=== PATIENT | male | born 1980 | race Caucasian/White ===

== ENCOUNTER 2016-12-16 16:04 | Day surgery (SDC) | payer MEDICAID ==
[~2016-12-16 16:04] MED LIST: EPINEPHRINE INJ 1 MG/10 ML DISP.SYRIN ONE; FENTANYL CITRATE INJ/PF 100 MCG/2 ML AMPUL ONE; FLUMAZENIL INJ 0.5 MG/5 ML VIAL IV ONE; GLUCAGON,HUMAN RECOMB 1 MG INJ ONE; MIDAZOLAM 2 MG/2 ML INJ ONE; NALOXONE HCL INJ/PF 0.4 MG/1 ML SDV ONE; ONDANSETRON HCL INJ/PF 4 MG/2 ML SDV ONE
--- NOTE | 2016-12-16 18:08 | Operative Report ---
Operative Report DATE OF SURGERY: 12/16/16 Operative Report: Pre-op diagnosis: History of colorectal cancer Post-op diagnosis: Transverse colon polyp Surgery: Colonoscopy through the stoma with polypectomy Medications: Versed 3mg, Fentanyl 100mcg IV push Tissue removed: Colon polyp Procedure: After informed consent obtained from patient, conscious sedation was achieved. The colonoscope was inserted into the stoma of his colostomy and advanced to the cecum. The appendiceal orifice and the terminal ileum were both identified. The mucosa was examined into details as the colonoscope was slowly pulled out of the patient. Patient tolerated the procedure well. Findings Terminal ileum: Cecum: Normal Ascending colon: Normal Transverse colon: 5 mm polyp removed with the cold snare Descending colon: Normal Plan: Await pathology and repeat colonoscopy in 3 years OPERATION: .
--- NOTE | 2016-12-16 18:11 | PDOC DISCHARGE SUMMARY ---
Discharge Summary (SDC) - Discharge Final Diagnosis: Transverse colon polyp Date of Surgery: 12/16/16 Condition: Stable Forms: Sedation D/C Instructions, Discharge POC-Surgical Service Treatment or Instructions: None Referrals: PADMINI VÁSQUEZ MD [ACTIVE STAFF] - (Keep follow up appointment as previously scheduled) Discharge Diet: As Tolerated Respiratory Treatments at Home: Deep Breathing/Coughing Discharge Activity: Balance Activity w/Rest, No Driving Home Care Assistance: Provided by Family Report the Following to Your Physician Immediately: Shortness of Breath, Nausea , Vomiting, Increase in Pain, Fever over 101 Degrees, Unusual Bleeding, Redness , Swelling, Warmth, Increased Soreness, IV Site Infection Signs
[2016-12-16 18:26] VITALS: BP 135/85
== END 2016-12-16 18:20 | disposition other institution (70) ==
LOC: END 16:04
PROVIDERS: ATTEND Internal Medicine Gastroenterology
PROC: 0DBL8ZX Excision of Transverse Colon, Via Natural or Artificial Opening Endoscopic, Diagnostic (ICD-10-PCS; principal; 2016-12-16 16:15)
DX: D12.3 Benign neoplasm of transverse colon (principal); Z85.038 Personal history of other malignant neoplasm of large intestine; K21.9 Gastro-esophageal reflux disease without esophagitis; I10 Essential (primary) hypertension
CPT/HCPCS: 44394; 88305 ×2; J2250; J3010; 45385; J0171; J1610; J2310; J2405; J3490

== ENCOUNTER → 2018-06-08 | Outpatient (CLI) | payer MEDICAID ==
--- NOTE | 2018-06-08 14:14 | RADIOLOGY REPORT (SQ) ---
EXAM DESCRIPTION: CT CHEST WITH COMPLETED DATE/TIME: 06/08/2018 10:41 am REASON FOR STUDY: COUGH R05 COUGH COMPARISON: 03/27/2015 TECHNIQUE: CT scan of the chest performed using helical scanning technique with dynamic intravenous contrast injection. Images reviewed with lung, soft tissue and bone windows. Reconstructed coronal and sagittal MPR and MIP images reviewed. All images stored on PACS. All CT scanners at this facility use dose modulation, iterative reconstruction, and/or weight based d osing when appropriate to reduce radiation dose to as low as reasonably achievable (ALARA). [facility]: Dose Right [facility]: CareDose [facility]: Dose Right [facility]: Teradose 4D [facility]: Looxii CONTRAST TYPE AND DOSE: contrast/concentration: Isovue 350.00 mg/ml; Total Contrast Delivered: 80.0 ml; Total Saline Delivered: 55.0 ml RENAL FUNCTION: Creatinine 0.7 RADIATION DOSE: CT Rad equipment meets quality standard of care and radiation dose reduction techniq ues were employed. CTDIvol: 18.8 mGy. DLP: 664 mGy-cm. . LIMITATIONS: None. FINDINGS: LUNGS AND PLEURA: No opacities, nodules, masses. No pneumothorax. No effusions. HILAR AND MEDIASTINAL STRUCTURES: No identified masses or abnormal nodes. HEART AND VASCULAR STRUCTURES: No aneurysm or dissection. No central pulmonary emboli. No pericardi al effusion. HARDWARE: None in the chest. UPPER ABDOMEN: The liver is prominent, but all the liver is not included. THYROID AND OTHER SOFT TISSUES: No masses. No adenopathy. BONES: Scoliosis. No osseous lesions are seen. OTHER: No other significant finding. IMPRESSION: No acute findings in the thorax. The liver is prominent. TECHNICAL DOCUMENTATION: JOB ID: [id number] Quality ID # [id number]: Final reports with documentation of one or more dose reduction techniques (e.g., Au tomated exposure control, adjustment of the mA and/or kV according to patient size, use of iterative reconstruction technique) 2010 [employer]- All Rights Reserved Reading location - IP/workstation name: [email or web address]
== END ==
LOC: RAD 10:10
PROVIDERS: ATTEND Internal Medicine Geriatric Medicine
DX: R05 Cough (principal)
CPT/HCPCS: 71260; 82565

== ENCOUNTER 2020-04-27 13:15 | Day surgery (SDC) | payer MEDICAID ==
[2020-04-27] MEDS ORDERED: LIDOCAINE 2% INJ-PF (20 MG/ML) 10 ML AMPUL ONE (13:58)
[2020-04-27] MEDS ORDERED: PROPOFOL INJ 200 MG/20 ML VIAL IV ONE (13:58)
--- NOTE | 2020-04-27 15:12 | Operative Report ---
Operative Report DATE OF SURGERY: 04/27/20 Operative Report: Pre-op diagnosis: History of rectal cancer Post-op diagnosis: Transverse colon polyp Surgery: Colonoscopy via stoma with polypectomy Medications: As per anesthesia Tissue removed: Colon polyp Procedure: After informed consent obtained from patient, conscious sedation was achieved. A digital rectal examination was performed and this was unremarkable. The colonoscope was inserted into the colostomy stoma and advanced to the cecum. The appendiceal orifice and the terminal ileum were both identified. The mucosa was examined into details as the colonoscope was slowly pulled out of the patient. Patient tolerated the procedure well. Findings Cecum: Normal Ascending colon: Normal Transverse colon: 4 mm polyp removed with a cold snare Descending colon: Normal Sigmoid colon: Normal Plan: Await pathology. Repeat colonoscopy in 3 years OPERATION: .
[2020-04-27 15:31] VITALS: BP 134/79
== END 2020-04-27 15:32 | disposition home or self-care (01) ==
LOC: END 13:15
PROVIDERS: ATTEND Internal Medicine Gastroenterology
DX: K63.5 Polyp of colon (principal); Z85.048 Personal history of other malignant neoplasm of rectum, rectosigmoid junction, and anus; F84.5 Asperger's syndrome; I10 Essential (primary) hypertension; E11.9 Type 2 diabetes mellitus without complications; Z20.828 Contact with and (suspected) exposure to other viral communicable diseases; Z93.3 Colostomy status
CPT/HCPCS: 44394; 82962; 87635; 88305 ×2; 00812; J2704; J3490; C9803; 812